=== PATIENT | female | born 1965 | race Caucasian/White ===

== ENCOUNTER 2018-09-03 06:24 | Emergency (ER) | END 2018-09-03 07:44 | disposition home or self-care (01) ==

== ENCOUNTER 2019-02-26 17:08 | Emergency (ER) | payer BC ==
[~2019-02-26] VITALS: Ht 157.5 cm; Wt 59.5 kg
[~2019-02-26 17:08] MED LIST: AZIT250T PO; CETI10CA PO; IBUP-1542 PO
[2019-02-26 17:18] VITALS: Ht 157.5 cm; Wt 59.5 kg
--- NOTE | 2019-02-26 19:47 | ERD ---
ER Documentation Chief Complaint Chief Complaint dizziness, head pressure, has vertigo medication not helping HPI This is a 53-year-old woman with a 3-month history of intermittent vertigo as diagnosed by her PMD, she states she has been using the meclizine he provided initially with relief but now it has lost its efficacy. She states she has been performing head tilt maneuvers as described by her PMD again initially with relief. She denies hearing loss, no fevers or chills, no blurry vision, no chest pain or shortness of breath. ROS All systems reviewed and are negative except as per history of present illness. Medications Home Meds Active Scripts Scopolamine (Scopolamine) 1 Each Patch.td.3, 1 EACH TD QPM PRN for VERTIGO, #1 BOX Prov:BREEZY HERNANDEZ MD 02/26/19 Ibuprofen* (Motrin*) 600 Mg Tab, 600 MG PO Q6H PRN for PAIN AND OR ELEVATED TEMP, #30 TAB Prov:KEVIN ZHOU PA-C 09/03/18 Cetirizine Hcl* (Zyrtec*) 10 Mg Capsule, 10 MG PO DAILY, #30 TAB.CHEW Prov:KEVIN ZHOU PA-C 09/03/18 Azithromycin* (Zithromax*) 250 Mg Tablet, 250 MG PO .ZPACK DIRECTED, #6 TAB TAKE 500 MG (2 TABS) THE FIRST DAY THEN 250 MG (1 TAB) DAYS 2-5 Prov:KEVIN ZHOU PA-C 09/03/18 Ibuprofen* (Motrin*) 600 Mg Tab, 600 MG PO Q6H PRN for PAIN AND OR ELEVATED TEMP, #30 Prov:RAFA JEREZ NP 04/08/15 Allergies Allergies: Coded Allergies: Penicillins (Verified Allergy, Unknown, 07/05/14) Tetracycline (Verified Allergy, Unknown, 07/05/14) PMhx/Soc Vertigo History of Surgery: No Anesthesia Reaction: No Hx Neurological Disorder: No Hx Respiratory Disorders: No Hx Cardiac Disorders: No Hx Psychiatric Problems: No Hx Miscellaneous Medical Probl: No Hx Alcohol Use: No Hx Substance Use: No Hx Tobacco Use: No Smoking Status: Never smoker FmHx Family History: No diabetes Physical Exam Vitals Vital Signs Date Temp Pulse Resp B/P (MAP) Pulse Ox O2 O2 Flow FiO2 Time Delivery Rate 02/26/19 98.0 57 17 129/75 98 Room Air 20:51 (93) 02/26/19 98.2 56 18 151/77 100 Room Air 19:29 (101) 02/26/19 98.2 68 18 117/76 97 17:18 (90) Physical Exam GENERAL: Well-developed, well-nourished, well-hydrated, in no apparent distress, looks nontoxic in appearance HEENT: Moist mucous membranes, pink conjunctiva, no cervical spine tenderness or step-off deformities, no goiter, no jaundice or icterus, extraocular movements intact without pain. No submandibular induration, and no pharyngeal erythema NEURO: Alert and oriented 3, cranial nerves II through XII intact bilaterally, pupils equal round reactive to light, no focal deficits or facial asymmetry, sensation intact distally Strength 5/5 in upper and lower extremities bilaterally CARDIAC: Regular rate and rhythm, no murmurs rubs or gallops LUNGS: Clear bilaterally no wheezing crackles or stridor ABDOMEN: Soft nontender, no guarding, no rigidity, no rebound, no psoas sign no obturator sign. Normoactive bowel sounds SKIN: Warm and dry to touch, no abrasions, contusions, or hematomas, no lacerations, no ecchymosis, no target lesions, and without ulcers EXTREMITIES: No clubbing cyanosis or edema, calves are bilaterally symmetrical, no Homans sign, no popliteal cord sign. Distal pulses equal and bilateral PSYCH: Normal affect without agitation or irritability Results 24 hrs Current Medications Medications Dose Sig/Andria Start Time Status Last (Trade) Ordered Route PRN Stop Time Admin Dose Reason Admin Lorazepam 0.5 mg ONCE ONCE 02/26/19 DC 02/26/19 (Ativan) PO 20:00 20:13 02/26/19 20:01 Procedures/MDM I administered lorazepam 0.5 mg p.o. x1 for complaints of dizziness and vertigo. CT scan of the brain was negative for acute bleed mass or shift. Prescribe scopolamine patches to use for her complaints of dizziness and vertigo and recommended follow-up with PMD for continued outpatient management and further imaging such as MRI brain if indicated. This management will be deferred to PMD I find no acute emergencies or any need for any further intervention, imaging, or admission. Differential diagnoses considered, included but not limited to acute coronary syndrome, pulmonary embolism, aortic dissection, abdominal aortic aneurysm, sepsis, stroke, meningitis, encephalitis, pneumonia, appendicitis, cholecystitis, bowel obstruction, pyelonephritis, nephrolithiasis, cystitis, as well as metabolic, hematologic, and electrolyte abnormalities. As well as abscess, cellulitis, fractures, and dislocations. Patient feels much better at this time, and vital signs are normal, symptoms have improved. I did give strict instructions to return to the ED if symptoms continue or worsen, patient will otherwise follow-up with primary care physician. Patient understood instructions and agreed to plan. Disclaimer: Inadvertent spelling and grammatical errors are likely due to EHR/dictation software use and do not reflect on the overall quality of patient care. Also, please note that the electronic time recorded on this note does not necessarily reflect the actual time of the patient encounter. Departure Diagnosis: Primary Impression: Dizziness Condition: Good BREEZY HERNANDEZ MD Feb 26, 2019 19:47
[2019-02-26] MEDS ORDERED: LORAZEPAM 0.5 MG TAB PO ONE (20:00)
[2019-02-26] MEDS ORDERED: SCOP1PAT16 TD (20:29)
[2019-02-26 20:51] VITALS: BP 129/75; PULSE 57; RESP 17
== END 2019-02-26 20:53 | disposition home or self-care (01) ==
LOC: E/R 17:08
DX: R42 Dizziness and giddiness (principal)
CPT/HCPCS: 70450